=== PATIENT | female | born 1995 | race African-American/Black ===

== ENCOUNTER 2021-02-15 10:17 | Emergency (ER) | payer SELFPAY ==
[2021-02-15] MEDS ORDERED: Tetracaine 0.5% PF 4 ML BOT ONE (11:52)
[2021-02-15] MEDS ORDERED: Fluorescein Opthalmic Strip ONE (11:53)
== END 2021-02-15 12:32 | disposition home or self-care (01) ==
LOC: CSHERS 10:17
DX: H05.20 Unspecified exophthalmos (principal); I10 Essential (primary) hypertension
CPT/HCPCS: 99283